=== PATIENT | female | born 2000 | race Caucasian/White ===

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

== ENCOUNTER 2021-06-17 15:52 | Emergency (ER) | payer MEDICAID ==
[~2021-06-17] VITALS: Ht 165.1 cm; Wt 72.7 kg
[2021-06-17 15:54] VITALS: BP 109/83
[2021-06-17] MEDS ORDERED: DOXYCYCLINE HYCLATE 100 MG TABLET PO ONE (16:45)
== END 2021-06-17 16:53 | disposition home or self-care (01) ==
LOC: EMS 15:52
DX: L03.211 Cellulitis of face (principal); F17.210 Nicotine dependence, cigarettes, uncomplicated
CPT/HCPCS: 99283; Z7502

== ENCOUNTER 2021-12-03 21:34 | Emergency (ER) | payer MEDICAID ==
[~2021-12-03] VITALS: Ht 165.1 cm; Wt 81.8 kg
[2021-12-03 22:31] VITALS: BP 120/60
[2021-12-03] MEDS ORDERED: SULF-261 PO (22:53)
== END 2021-12-03 23:06 | disposition home or self-care (01) ==
LOC: EMS 21:48
DX: N61.0 Mastitis without abscess (principal); S21.012A Laceration without foreign body of left breast, initial encounter; F15.10 Other stimulant abuse, uncomplicated; F17.210 Nicotine dependence, cigarettes, uncomplicated; W45.8XXA Other foreign body or object entering through skin, initial encounter; Y93.89 Activity, other specified; Y92.89 Other specified places as the place of occurrence of the external cause; Y99.8 Other external cause status; Z98.890 Other specified postprocedural states
CPT/HCPCS: 99283